=== PATIENT | male | born 1990 | race Caucasian/White ===

== ENCOUNTER → 2021-05-17 | Outpatient (CLI) | payer OTHER ==
[~2021-05-17] MED LIST: CEPH250A PO; IBUP800 PO; Norco 5-325 Ta1 EACH PO
== END ==
LOC: LAB SHORT 13:57
DX: S71.102D Unspecified open wound, left thigh, subsequent encounter (principal)
CPT/HCPCS: 87070; 87075; 87077; 87147; 87186; 87205

== ENCOUNTER 2021-05-20 14:14 | Inpatient (IN) | payer OTHER ==
[~2021-05-20] VITALS: Ht 172.7 cm; Wt 70.5 kg
[~2021-05-20 14:14] MED LIST changes: -CEPH250A PO
[2021-05-20] MEDS ORDERED: CEPH250A PO (14:24)
[2021-05-20 15:06] LABS: Alanine Aminotransfer (ALT/SGP 30 U/L (12-78); Albumin, Blood 2.8 g/dL (3.4-5.0); Albumin/Globulin Ratio 0.6 (0.8-1.8); Alk Phos 110 U/L (50-136); Anion Gap 7 mmol/L (6-16); Aspartate Aminotrans (AST/SGOT 16 U/L (12-37); Bilirubin, Total 0.8 mg/dL (0.1-1.0); Blood Urea Nitrogen 10 mg/dL (8-24); Bun/Creatinine Ratio 25.1 (12.0-20.0); CO2, Blood 29 mmol/L (21-32); Calcium, Blood 9.4 mg/dL (8.5-10.1); Chloride, Blood 102 mmol/L (98-108); Globulin, Blood 4.4 g/dL (2.2-4.0); Glomerular Filtration Rate >60 (60-); Glucose, Blood 101 mg/dL (70-99); Potassium, Blood 3.5 mmol/L (3.5-5.5); Sodium, Blood 138 mmol/L (136-145); Total Protein, Blood 7.2 g/dL (6.4-8.2)
[2021-05-20 15:33] LABS: BASOPHILS ABSOLUTE AUTO 0.03 K/mm3 (0.00-0.23); BASOPHILS PERCENT AUTO 0 % (0-2); EOSINOPHILS ABSOLUTE AUTO 0.05 K/mm3 (0.00-0.68); EOSINOPHILS PERCENT AUTO 1 % (0-6); Hematocrit 29.3 % (37.0-53.0); Hemoglobin 9.5 g/dL (13.5-17.5); IMMATURE GRAN ABSOLUTE AUTO 0.04 K/mm3 (0.00-0.10); IMMATURE GRAN PERCENT AUTO 0 % (0-1); LYMPHOCYTES ABSOLUTE AUTO 1.15 K/mm3 (0.84-5.20); LYMPHOCYTES PERCENT AUTO 12 % (21-46); MONOCYTES ABSOLUTE AUTO 1.09 K/mm3 (0.16-1.47); MONOCYTES PERCENT AUTO 11 % (4-13); Mean Corpuscular HGB 30.3 pg (26.0-34.0); Mean Corpuscular HGB Conc 32.4 g/dL (31.5-36.5); Mean Corpuscular Volume 93 fL (80-100); Mean Platelet Volume 10.6 fL (9.1-12.4); NEUTROPHILS ABSOLUTE AUTO 7.59 K/mm3 (1.96-9.15); NEUTROPHILS PERCENT AUTO 76 % (41-73); Platelet Count 351 K/mm3 (150-400); RDW Coefficient Variation 12.4 % (11.7-14.2); RDW Standard Deviation 42.5 fL (35.1-46.3); Red Blood Cell Count 3.14 M/mm3 (4.30-5.90); White Blood Cell Count 9.95 K/mm3 (4.00-11.30)
--- NOTE | 2021-05-20 16:27 | NUR ---
PT TRANSFERED TO [facility]IA G[facility]NY FROM ER. History, Chart, Medications and Allergies reviewed before start of procedure. Lungs clear T/O to Auscultation. Patient confirms NPO status and agrees with scheduled surgery. Pre-Op teaching done. Pt verbalizes understanding.
--- NOTE | 2021-05-20 16:29 | NUR ---
PT'S GLASSES TAKEN TO PACU. PT'S BELONGINGS BAG PLACED UNDER GURNY WITH HIS PHONE AND TONGUE PIERCING PLACED IN THE BAG. PT'S CRUTCHES UNDERNEATH GURNY.
--- NOTE | 2021-05-20 19:20 | NUR ---
PT ARRIVED TO THE UNIT FROM PACU AT APPROXIMATELY 1830. PT IS ALERT AND ORIENTED BUT HAS A FLAT AFFECT. LUNG SOUNDS ARE CLEAR T/O. HEART SOUNDS REGULAR. PT REPORTS PAIN MANAGED AT TIME OF ARRIVAL TO THE ROOM. WOUND VAC IN PLAC TO L THIGH DRAINING SEROSANGUINOUS FLUIDS. VSS. WILL MONITOR UNTIL REPORT TO NOC GISELE.
[2021-05-20 19:33] LABS: International Normalized Ratio 1.16; Prothrombin Time Results 12.1 Sec (9.7-11.5)
[2021-05-21 04:49] LABS: BASOPHILS ABSOLUTE AUTO 0.01 K/mm3 (0.00-0.23); BASOPHILS PERCENT AUTO 0 % (0-2); EOSINOPHILS PERCENT AUTO 0 % (0-6); Hematocrit 32.1 % (37.0-53.0); Hemoglobin 10.4 g/dL (13.5-17.5); IMMATURE GRAN ABSOLUTE AUTO 0.03 K/mm3 (0.00-0.10); IMMATURE GRAN PERCENT AUTO 0 % (0-1); LYMPHOCYTES ABSOLUTE AUTO 0.41 K/mm3 (0.84-5.20); LYMPHOCYTES PERCENT AUTO 5 % (21-46); MONOCYTES ABSOLUTE AUTO 0.44 K/mm3 (0.16-1.47); MONOCYTES PERCENT AUTO 5 % (4-13); Mean Corpuscular HGB 30.4 pg (26.0-34.0); Mean Corpuscular HGB Conc 32.4 g/dL (31.5-36.5); Mean Corpuscular Volume 94 fL (80-100); NEUTROPHILS PERCENT AUTO 89 % (41-73); Platelet Count 357 K/mm3 (150-400); RDW Coefficient Variation 12.5 % (11.7-14.2); RDW Standard Deviation 42.9 fL (35.1-46.3); Red Blood Cell Count 3.42 M/mm3 (4.30-5.90); White Blood Cell Count 8.19 K/mm3 (4.00-11.30)
[2021-05-21 05:24] LABS: Alanine Aminotransfer (ALT/SGP 30 U/L (12-78); Albumin/Globulin Ratio 0.7 (0.8-1.8); Alk Phos 117 U/L (50-136); Anion Gap 7 mmol/L (6-16); Aspartate Aminotrans (AST/SGOT 11 U/L (12-37); Bilirubin, Total 0.8 mg/dL (0.1-1.0); Blood Urea Nitrogen 13 mg/dL (8-24); Bun/Creatinine Ratio 26.4 (12.0-20.0); CO2, Blood 27 mmol/L (21-32); Calcium, Blood 9.7 mg/dL (8.5-10.1); Chloride, Blood 105 mmol/L (98-108); Creatinine, Blood 0.49 mg/dL (0.60-1.20); Globulin, Blood 4.5 g/dL (2.2-4.0); Glomerular Filtration Rate >60 (60-); Glucose, Blood 139 mg/dL (70-99); Potassium, Blood 4.1 mmol/L (3.5-5.5); Sodium, Blood 139 mmol/L (136-145); Total Protein, Blood 7.5 g/dL (6.4-8.2)
--- NOTE | 2021-05-21 06:48 | NUR ---
SHIFT SUMMARY: PT IN BED WITH NO SIGNS OF DISTRESS NOTED. AAOX4. VS WNL. IV SITE C/D/I PATENT. WOUND DRESSING ON LEFT LEG ATTACHED TO WOUND VAC. PT COMPLAINED OF PAIN MEDICATED PER EMAR. MONITORING AND MAINTAINING ALL PRECAUTIONS.
--- NOTE | 2021-05-21 10:28 | NUR ---
Pt. is alert and in bed. Pt. welcomes my visit. Establish rapport. Pt. verbalizes update of his injury, and healing. Pt. is unsettled about not seeing SO who is . Pt. verbalizes his spiritual background. Prayed for Pt. Pt. displayed eveidence of engagement, and verbalized gratitude for his spiritual care visit.
[2021-05-21 15:54] LABS: Vancomycin, Trough 22.4 ug/mL (5.0-10.0)
--- NOTE | 2021-05-22 06:31 | NUR ---
SHIFT SUMMARY: ALERT AND ORIENTED. MEDICATED WITH FENTANYL AND ROXICODONE INTERMITTENTLY FOR PAIN MANAGEMENT, EFFECTIVE RELIEF. JAVIER WRAP INTACT TO LEFT HIP, WOUND VAC ON AND WORKING PROPERLY. RESTING PEACEFULLY IN BED, SAFETY MAINTAINED, CALL BIRCH IN REACH.
--- NOTE | 2021-05-22 10:13 | NUR ---
Pt. is alert and in bed. Pt. welcomes my visit. Pt. verbalizes his recovery prognosis and plan. Listen empathetically. Pt. is unsettled about being from his family. Pastoral children's counselor is given. Prayed with pt. Pt. verbalizes grattitude for the spiritual care visit. Visit was shortened by presence of nursing care. I will attempt to see pt. again this afternoon.
--- NOTE | 2021-05-22 11:12 | NUR ---
PT OUT OF ROOM FOR PROCEDURE.
--- NOTE | 2021-05-22 11:40 | NUR ---
PATIENT WAS BROUGHT TO DAY SURGERY FOR HIS I&D OF THE LEFT THIGH.
--- NOTE | 2021-05-22 14:26 | NUR ---
ARRIVAL TO UNIT PT ARRIVED TO UNIT FROM PACU. PT AA0X4, BUT TIRED. ON ROOM AIR SATS 98-100%. DENIES SOB. REPORTS PAIN OF 5/10 TO LLE AND TAILBONE. CURRENTLY EATING JELLO AND TOLERATING ICE WATER. WILL MEDICATE PER EMAR. WOUND VAC AND DRESSING CDI. WOUND VAC COMPRESSED AND SUCTIONING. ABLE TO WIGGLE TOES, PULSE PALPABLE. WARM TO TOUCH, FULL SENSATION.
--- NOTE | 2021-05-22 17:21 | NUR ---
SHIFT SUMMARY S/P I&D L THIGH AA0X4. PT HAS BEEN TOLERATING PO SINCE PROCEDURE, HE DENIES ANY NAUSEA. PAIN MANAGED PER EMAR. WOUND VAC CHANGED IN OR. CURRENTLY SET TO 120MMHG. PATENT AND COMPRESSED. JAVIER WRAP OVER CDI. LUNG SOUNDS CLEAR PT TAKES DEEP BREATHS. PT EXPRESSED A STRONG DESIRE TO GO HOME. PLAN IS FOR POSSIBLE DC THURSDAY AFTER CHANGING DRESSING.
[2021-05-22 23:23] LABS: Vancomycin, Trough 18.4 ug/mL (5.0-10.0)
[2021-05-23 04:13] LABS: BASOPHILS ABSOLUTE AUTO 0.01 K/mm3 (0.00-0.23); BASOPHILS PERCENT AUTO 0 % (0-2); EOSINOPHILS ABSOLUTE AUTO 0.01 K/mm3 (0.00-0.68); EOSINOPHILS PERCENT AUTO 0 % (0-6); Hematocrit 28.8 % (37.0-53.0); Hemoglobin 9.2 g/dL (13.5-17.5); IMMATURE GRAN ABSOLUTE AUTO 0.05 K/mm3 (0.00-0.10); IMMATURE GRAN PERCENT AUTO 1 % (0-1); LYMPHOCYTES ABSOLUTE AUTO 0.91 K/mm3 (0.84-5.20); LYMPHOCYTES PERCENT AUTO 11 % (21-46); MONOCYTES PERCENT AUTO 11 % (4-13); Mean Corpuscular HGB Conc 31.9 g/dL (31.5-36.5); Mean Corpuscular Volume 94 fL (80-100); Mean Platelet Volume 9.8 fL (9.1-12.4); NEUTROPHILS ABSOLUTE AUTO 6.67 K/mm3 (1.96-9.15); NEUTROPHILS PERCENT AUTO 78 % (41-73); Platelet Count 404 K/mm3 (150-400); RDW Coefficient Variation 12.5 % (11.7-14.2); Red Blood Cell Count 3.07 M/mm3 (4.30-5.90); White Blood Cell Count 8.55 K/mm3 (4.00-11.30)
[2021-05-23 04:42] LABS: Anion Gap 6 mmol/L (6-16); Blood Urea Nitrogen 9 mg/dL (8-24); Bun/Creatinine Ratio 13.6 (12.0-20.0); CO2, Blood 28 mmol/L (21-32); Calcium, Blood 8.5 mg/dL (8.5-10.1); Chloride, Blood 108 mmol/L (98-108); Creatinine, Blood 0.66 mg/dL (0.60-1.20); Glomerular Filtration Rate >60 (60-); Glucose, Blood 119 mg/dL (70-99); Potassium, Blood 3.6 mmol/L (3.5-5.5); Sodium, Blood 142 mmol/L (136-145)
--- NOTE | 2021-05-23 05:47 | NUR ---
SHIFT SUMMARY: MEDICATED FOR PAIN MANAGEMENT DUE TO LEFT HIP PAIN, ROTATING BTW ROXICODONE, FENTANYL AND TORADOL. WOUND VAC ON AND WORKING PROPERLY, DRAINED ABOUT 100ML OF SANGUINOUS DRAINAGE. TELE: PER TELE HEART RATE DECREASED IN LOW 40'S, ASYMPTAMTIC, OTHERWISE SINUS RHYTHM. RESTING PEACEFULLY IN BED, SAFETY MAINTAINED, CALL BIRCH IN REACH.
--- NOTE | 2021-05-23 11:52 | NUR ---
Pt. is awake in bed. Pt. welcomes my visit. Pt. displays evidence of encouragement about the prospect of a thursday discharge. Normalize the pt. experience and provide post discharge anticipatory guidance. Pt. is unsettled about the financial impact his injury and recovery will have on his family. Listened empathetically. Provided some pastoral certified alcohol and drug counselor. Prayedd with Pt. Pt. displayed evidence of reduced stress. Pt. verbalized gratitude for spiritual care visit.
--- NOTE | 2021-05-23 16:47 | NUR ---
SHIFT ASSESSMENT PATIENT ADMITED TO SURGICAL FLOOR FROM OR AFTER HAVING AN I&D PRECEDURE BY . WOUND VAC ON RIGHT THIGH, 120MM/HG. SOME SEROUS FLUID IN THE LINE. DRESSING CDI. SITE COVERED WITH JAVIER BANDAGE. PT OUT FOR 30 MINUTES TO VISIT WITH AND KIDS. HIS MOOD GREATLY IMPROVED AFTER AND PT WAS THANKFUL. PT BACK IN ROOM IN BED RESTING WITH RIGHT LEG ELEVATED. PAIN IS CURRENTLY 3/10, WANTS PRN HYDROCODONE AT 1850.
--- NOTE | 2021-05-23 18:07 | NUR ---
SHIFT SUMMARY POD 1 I&D L THIGH WOUND VAC PATENT AND DRAINGING, FOAM COMPRESSED. SANGUINOUS DRAINAGE IN TUBE. PAIN MANAGED PER EMAR, PT REPORTS CONSTANT DISCOMFORT. PT TOLERATING PO WELL. UP TO BATHROOM WITH CRUTCHES, MOVES WELL WITH SBY ASSIST FOR CORD MANAGEMENT.
[2021-05-23 23:44] LABS: Vancomycin, Trough 29.3 ug/mL (5.0-10.0)
--- NOTE | 2021-05-23 23:58 | NUR ---
CRITICAL VALUE: RECEIVED PHONE CALL AT [phone] FROM HEMATOLOGY, PT HAS CRITICAL VALUE OF VANCO TROUGH 29.3. THIS RN NOTIFIED PHARMACIST VALE Pizarro, WHO STATED TO HOLD VANCOCIN DOSE THIS EVENING. SEE EMAR. NOTIFIED CHARGE NURSE.
--- NOTE | 2021-05-24 04:40 | NUR ---
SHIFT SUMMARY PT IS PLEASANT AND COOPERATIVE WITH CARE. A&O X4. HE IS POD#1 FOLLOWING AN I&D TO LEFT LEG WOUND. WOUND VAC IN PLACE, BLACK FOAM COMPRESSED AND CONNECTED TO SUCTION DRAINING SANGUINOUS FLUID. WOUND VAC DRESSING IS SECURED WITH JAVIER WRAP. BRUISING TO LEFT ANKLE, PT REPORTS FRACTURE FROM WORK PLACE INJURY PRIOR TO ARRIVAL. ABLE TO WIGGLE TOES, CAP REFILL <3 SECONDS, PEDAL PULSES STRONG BILAT DENIES NUMBNESS/TINGLING. CRITICAL VANCO LEVEL OF 29.3, HELD MIDNIGHT VANCO DOSE PER PHARADHA PEÑALOZA. LUNGS CLEAR, USES URINAL AT BEDSIDE. PLAN: DR. MCCARTHY TO DO FIRST DRESSING CHANGE ON 05/24/21 WITH POSSIBLE D/C. APPT THURSDAY WITH [facility]. PLANS FOR HOME HEALTH TO DO WOUND VAC DRESSING CHANGES M/W/. WILL CONTINUE TO MONITOR.
[2021-05-24] MEDS ORDERED: Norco 10-325 T1 EACH PO (10:10)
[2021-05-24] MEDS ORDERED: DOCU100 PO (10:13)
[2021-05-24] MEDS ORDERED: Acetaminophen325 M1 PO (10:13)
[2021-05-24] MEDS ORDERED: VISBIOME 112.51 EACH PO (10:14)
[2021-05-24] MEDS ORDERED: METR500 PO (10:15)
[2021-05-24] MEDS ORDERED: SULTRIDS PO (10:16)
--- NOTE | 2021-05-24 10:45 | NUR ---
05/24/21 1045 Becky Shannon VERIFICATIONS: EDIT CHART.
[2021-05-24 11:54] LABS: Vancomycin, Random 15.5 ug/mL
--- NOTE | 2021-05-24 13:01 | NUR ---
Received referral from nurse property caretaker (Sophie Fu) on 05/24/2021. Patient is to discharge today- 05/24/2021 with orders for home health and elected [facility]. Met with patient to further discuss the above. Patient is agreeable to the above. Discussed homebound status definition with patient. Patient verbalized understanding. Discussed what home health is vs what it is not (in home caregivers/housekeeping). Patient verbalized understanding. Discussed the next steps in the process of an initial assessment to determine frequency of visits. Again patient verbalized understanding. Offered a chance for patient to ask questions regarding the above of which there were none. Gathered all supporting documentation for referral (face sheet, face to face, med list, and H&P) and sent to [facility] for review. No further interventions required. Fariha Lora Referral Liaison
--- NOTE | 2021-05-24 19:24 | NUR ---
DISCHARGE SUMMARY DISCUSSED DISCHARGE INFORMATION c PT, A/O X4, VSS, TOLERATING DIET, PAIN WELL MANAGED. SET UP AT HOME WOUND VAC, DISCUSSED ITS USE AND SOME TROUBLESHOOTING, GAVE CONTACT INFORMATION SHOULD ANY QUESTIONS ARISE AFTER DISCHARGE, PT REPORTS NO QUESTIONS AT THIS TIME. NO IV ACCESS IN PLACE, PT ESCORTED OUT TO HIS PRIVATE VEHICLE VIA WC WITH ALL POSSESSIONS. HARD SCRIPT GIVEN TO PATIENT, REMAINING SCRIPTS FAXED TO [facility].
== END 2021-05-24 19:18 | disposition home or self-care (01) | DRG 572 ==
LOC: ER 14:14 → SURS 18:12
PROVIDERS: Internal Medicine; Orthopaedic Surgery; Pharmacist; Physician Assistant; ADMIT Internal Medicine
PROC: 0JBM0ZZ Excision of Left Upper Leg Subcutaneous Tissue and Fascia, Open Approach (ICD-10-PCS; principal; 2021-05-20 12:30)
PROC: 0J9M0ZZ Drainage of Left Upper Leg Subcutaneous Tissue and Fascia, Open Approach (ICD-10-PCS; 2021-05-22)
DX: L02.416 Cutaneous abscess of left lower limb (principal); M41.9 Scoliosis, unspecified; Z20.822 Contact with and (suspected) exposure to COVID-19; D64.9 Anemia, unspecified; B95.61 Methicillin susceptible Staphylococcus aureus infection as the cause of diseases classified elsewhere; L03.116 Cellulitis of left lower limb; Z79.899 Other long term (current) drug therapy; W23.0XXA Caught, crushed, jammed, or pinched between moving objects, initial encounter
CPT/HCPCS: 36415; 73701; 80048; 80053; 80202; 83605; 85025; 85610; 85730; 87040; 87070; 87071; 87075; 87077; 87147; 87185; 87186; 87205; 96374-59; 96375-59; 99285-25; A9270; J1100; J1170; J1650; J1885; J2250; J2405; J2543; J2704; J3010; J3370; J7030; J7050; J7120; Q9967

== ENCOUNTER 2021-05-27 01:21 | Day surgery (SDC) | payer OTHER ==
[~2021-05-27 01:21] MED LIST changes: +Acetaminophen325 M1 PO; +CEPH250A PO; +DOCU100 PO; +METR500 PO; +Norco 10-325 T1 EACH PO; +SULTRIDS PO; +VISBIOME 112.51 EACH PO
== END 2021-05-27 23:29 | disposition home or self-care (01) ==
LOC: WOUND
DX: S71.102A Unspecified open wound, left thigh, initial encounter (principal); V09.9XXA Pedestrian injured in unspecified transport accident, initial encounter
CPT/HCPCS: A9270; G0463

== ENCOUNTER 2021-05-29 00:52 | Day surgery (SDC) | payer OTHER | END 2021-05-29 22:48 | disposition home or self-care (01) | LOC: WOUND 00:52 | DX: S71.102A Unspecified open wound, left thigh, initial encounter (principal); X58.XXXA Exposure to other specified factors, initial encounter ==

== ENCOUNTER 2021-05-31 01:04 | Day surgery (SDC) | payer OTHER | END 2021-05-31 23:57 | disposition home or self-care (01) | LOC: WOUND 01:04 | DX: S71.102A Unspecified open wound, left thigh, initial encounter (principal) ==

== ENCOUNTER 2021-06-03 03:10 | Day surgery (SDC) | payer OTHER | END 2021-06-03 23:35 | disposition home or self-care (01) | LOC: WOUND 03:10 | DX: S71.102A Unspecified open wound, left thigh, initial encounter (principal); X58.XXXA Exposure to other specified factors, initial encounter ==

== ENCOUNTER 2021-06-05 01:19 | Day surgery (SDC) | payer OTHER | END 2021-06-05 23:21 | disposition home or self-care (01) | LOC: WOUND 01:19 | DX: S71.102A Unspecified open wound, left thigh, initial encounter (principal) ==

== ENCOUNTER 2021-06-07 00:51 | Day surgery (SDC) | payer OTHER | END 2021-06-07 22:53 | disposition home or self-care (01) | LOC: WOUND 00:51 | DX: S71.102A Unspecified open wound, left thigh, initial encounter (principal) ==

== ENCOUNTER 2021-06-10 05:56 | Day surgery (SDC) | payer OTHER | END 2021-06-10 23:28 | disposition home or self-care (01) | LOC: WOUND 05:56 | DX: S71.102D Unspecified open wound, left thigh, subsequent encounter (principal) | CPT/HCPCS: G0463 ==

== ENCOUNTER 2021-06-12 03:41 | Day surgery (SDC) | payer OTHER | END 2021-06-12 23:02 | disposition home or self-care (01) | LOC: WOUND 03:41 | DX: S71.101A Unspecified open wound, right thigh, initial encounter (principal) | CPT/HCPCS: G0463 ==

== ENCOUNTER 2021-06-14 00:43 | Day surgery (SDC) | payer OTHER | END 2021-06-14 23:57 | disposition home or self-care (01) | LOC: WOUND 00:43 | DX: S71.102A Unspecified open wound, left thigh, initial encounter (principal); X58.XXXA Exposure to other specified factors, initial encounter | CPT/HCPCS: G0463 ==

== ENCOUNTER 2021-06-19 00:42 | Day surgery (SDC) | payer OTHER | END 2021-06-19 23:14 | disposition home or self-care (01) | LOC: WOUND 00:42 | DX: S71.102D Unspecified open wound, left thigh, subsequent encounter (principal) | CPT/HCPCS: G0463 ==

== ENCOUNTER 2021-06-24 01:50 | Day surgery (SDC) | payer OTHER | END 2021-06-24 23:38 | disposition home or self-care (01) | LOC: WOUND 01:50 | DX: S71.102D Unspecified open wound, left thigh, subsequent encounter (principal); V83.9XXD Unspecified occupant of special industrial vehicle injured in nontraffic accident, subsequent encounter | CPT/HCPCS: G0463 ==